=== PATIENT | female | born 1995 | race Caucasian/White ===

== ENCOUNTER 2018-11-05 13:25 | Inpatient (IN) | payer OTHER ==
[~2018-11-05] VITALS: Ht 162.6 cm; Wt 109.7 kg
[2018-11-05] MEDS ORDERED: ONDANSETRON 4 MG INJ IV STA (13:46)
[2018-11-05] MEDS ORDERED: METHYLERGONOVINE 0.2 MG INJ IM PRN ×2 (14:00→22:00)
[2018-11-05] MEDS ORDERED: OXYTOCIN 30 UNITS/LR 500 ML IV PRN ×2 (14:00→22:00)
[2018-11-05] MEDS ORDERED: METOCLOPRAMIDE 10 MG INJ IV ONE (14:00)
[2018-11-05] MEDS ORDERED: CEFAZOLIN 2 GM/50 ML (PMX) 50 ML IVPB SCH (14:00)
[2018-11-05] MEDS ORDERED: CARBOPROST 250 MCG INJ IM PRN ×2 (14:00→22:00)
[2018-11-05] MEDS ORDERED: MISOPROSTOL 200 MCG TAB PR PRN ×2 (14:00→22:00)
[2018-11-05 14:01] VITALS: Ht 162.6 cm; Wt 109.7 kg
[2018-11-05 14:03] VITALS: BP 127/73; PULSE 96
[2018-11-05] MEDS: LACTATED RINGER'S 1,000 ML IV SCH ×2 (14:45→14:46)
--- NOTE | 2018-11-05 15:01 | PREAC ---
Date/Time of Note Date/Time of Note DATE: 11/05/18 TIME: 15:00 Anesthesia Eval and Record Evaluation Time Pre-Procedure Interview DATE: 11/05/18 TIME: 15:00 Age 23 Sex female NPO: 8 hrs Preoperative diagnosis term labor, previous Csection Planned procedure repeat Csection Past Medical History Past Medical History: Includes GI: Obesity Surgery & Anesthesia Issues No known issue Meds Anticoagulation: No Beta Gopi within 24 hr: No Reason Beta Gopi not given: Pt. not on B-Gopi Current Medications Lactated Ringer's 1,000 ml @ 125 mls/hr Q8H IV Last administered on 11/05/18at 14:46; Admin Dose 125 MLS/HR; Start 11/05/18 at 13:46 Cefazolin Sodium/ Dextrose 50 ml @ 100 mls/hr ONCE IVPB ; Start 11/05/18 at 14:00 Oxytocin/Lactated Ringer's 500 ml @ 0 mls/hr ONCE PRN IV .VAGINAL BLEEDING; Start 11/05/18 at 14:00 Methylergonovine Maleate (Methergine) 0.2 mg ONCE PRN IM .VAGINAL BLEEDING; Start 11/05/18 at 14:00 Carboprost Tromethamine (Hemabate) 250 mcg ONCE PRN IM .VAGINAL BLEEDING; Start 11/05/18 at 14:00 Misoprostol (Cytotec) 1,000 mcg ONCE PRN TX .VAGINAL BLEEDING; Start 11/05/18 at 14:00 Meds reviewed: Yes Allergies Coded Allergies: No Known Allergies (Unverified Allergy, Unknown, 06/21/14) Allergies Reviewed: Yes Labs/Studies Labs Reviewed: Reviewed by anesthesiologist Result Diagram: 11/05/18 1355 Laboratory Tests 11/05/18 13:55 Blood Bank Test 11/05/18 13:55 Antibody Screen NEGATIVE Blood Type AB POSITIVE Rh Immune Globulin Candidate NO test: Positive Pre-procedure Exam Last vitals Vital Signs Date Temp Pulse Resp B/P (MAP) Pulse Ox O2 O2 Flow FiO2 Time Delivery Rate 11/05/18 99.3 96 127/73 Room Air 14:03 (91) Airway: Adequate mouth opening, Adequate thyromental dist Mallampati: Mallampati III Teeth: Normal Lung: Normal Heart: Normal ASA Physical Status ASA physical status: 2 Emergency: None Planned Anesthetic Neuraxial: Spinal Planned Pain Management Sub-arachniod narcotics, Parenteral pain med, Other neuraxial med Pre-operative Attestations Prior to commencing anesthesia and surgery, the patient was re-evaluated, there was verification of: *The patient's identity *The results of appropriate recent lab work and preoperative vital signs *The above evaluation not changing prior to induction *Anesthetic plan, risk benefits, alternative and complications discussed with p atient/family; questions answered; patient/family understands, accepts and wishes to proceed. RASHID OTERO MD November 05, 2018 15:01
[2018-11-05] MEDS ORDERED: morphine SULFATE/PF (10 MG/10 ML) INJ ONE (15:04)
[2018-11-05] MEDS ORDERED: OXYTOCIN 10 UNIT INJ ONE (15:05)
[2018-11-05] MEDS ORDERED: OXYTOCIN 30 UNITS/LR 500 ML IV ONE (15:05)
[2018-11-05] MEDS ORDERED: hydrALAzine 20 MG INJ IV PRN (15:30)
[2018-11-05] MEDS ORDERED: HYDROmorphONE 1 MG/5 ML IV SYRINGE IV PRN ×3 (15:30)
[2018-11-05] MEDS ORDERED: ONDANSETRON 4 MG INJ IV PRN ×2 (15:30)
[2018-11-05] MEDS ORDERED: MIDAZOLAM 1 MG/ML 2 ML INJ IV PRN (15:30)
[2018-11-05] MEDS ORDERED: LABETALOL HCL 20MG INJ IV PRN (15:30)
[2018-11-05] MEDS ORDERED: DIPHENHYDRAMINE 50 MG INJ IV PRN ×2 (15:30)
[2018-11-05] MEDS ORDERED: FENTAnyl 50 MCG/ML VIAL IV PRN ×2 (15:30)
[2018-11-05] MEDS ORDERED: ZOLPIDEM 5 MG TAB PO PRN (15:30)
[2018-11-05] MEDS ORDERED: NALOXONE (0.4 MG/ML) INJ IV PRN (15:30)
[2018-11-05] MEDS ORDERED: HYDROmorphONE 0.5 MG/0.5 ML SYG IV PRN ×2 (15:30)
[2018-11-05] MEDS ORDERED: KETOROLAC 30 MG INJ IV PRN (15:30)
[2018-11-05] MEDS ORDERED: FAMOTIDINE 20 MG INJ IV ONE (16:00)
--- NOTE | 2018-11-05 17:20 | HP ---
Date/Time of Note Date/Time of Note DATE: 11/05/18 TIME: 17:14 OB - History Hx of Present Free Text/Dictation 23 years old 2 para 1-0-0-1 with single intrauterine at 39 weeks and 1 day and previous delivery desires repeat delivery. She states good movement. She denies nausea, vomiting, shortness of breath, chest pain, headache, visual changes, vaginal bleeding or LOF. Risk factors: - Previous delivery x1 - Obesity - History of gestational hypertension in prior - Recurrent urinary tract infections: Currently is on prophylaxis with ceph alexin 500 mg daily Chief Complaint: Scheduled for repeat delivery Estimated Due Date: November 11, 2018 : 2 Para: 1 Spontaneous : 0 Therapeutic : 0 Care: Good Care Ultrasounds: Normal mid trimester US Obstetrical Complications: None Medical Complications: Other (Recurrent urinary tract infection) Past Family/Social History * Past Medical, Surgical, Family and Obstetric Histories reviewed from chart. Blood Type: AB+ Rubella: immune RPR/VDRL: Negative GBS Status: Negative HBsAG: Negative OB Admission Exam Vital Signs Vital Signs Vital Signs Date Temp Pulse Resp B/P (MAP) Pulse Ox O2 O2 Flow FiO2 Time Delivery Rate 11/05/18 99.3 96 127/73 Room Air 14:03 (91) Physical Exam HEENT: WNL Heart: Rhythm Normal Lungs: Clear Abdomen: WNL Extremities: Normal Reflexes: Normal Membranes: Intact Heart Rate: 140's Accelerations: Accelerations Present Decelerations: No Decelerations Varibility: Moderate Contractions on Admission: 6-10 Minutes Apart Intensity: Mild (Patient is comfortable with contractions) Last 72 hours Lab Results CBC & BMP 11/05/18 13:55 OB Assessment/Plan Other plan: 23 years old 2 para 1-0-0-1 with previous delivery, obesity at 39 weeks and 1 day desires repeat delivery -FHR: No sign of metabolic acidosis- Category I -Continuous EFM, toco -CBC, blood type and screen -Please see the orders -AB+/Rubella: Immune -GBS: Negative 2) history of recurrent UTI in current : She is currently on pr ophylaxis cephalexin 500 mg daily, will continue for 2 to 3 weeks after delivery The risk of delivery including but not limited to bleeding, infection, injury to other organs (bowel, bladder, ureter, vessels, nerves), injury to fetus, blood transfusion, blood transfusion related infection, risk of anesthesia, adhesion, needs for future , removal of uterus or any other indicated surgery, also increased risk of infection, deep vein thrombosis, pulmonary emboli due to BMI of 41.5 discussed with the patient and her family. She expressed understanding. All of her questions were answered. She signed the informed consent. PHYSICIAN'S VERIFICATION OF INFORMED CONSENT The patient was counseled regarding the procedure, its indications, risks, potential complications and alternatives and any questions were answered. Consent was obtained. PLANNED PROCEDURE/TREATMENT: delivery with possible using vacuum/forceps and any other indicated surgery PHYSICIAN'S VERIFICATION OF INFORMED CONSENT FOR BLOOD TRANSFUSION: There is a reasonable possibility that blood transfusion will be necessary as a result of the patient's procedure. I have discussed the following with the patient/patient's legal aircraft sales representative: An explanation of the benefits and risks of the transfusion of blood or blood products and the possible alternatives. All questions have been answered to the patient's satisfaction. INFORMED CONSENT:The patient has been informed of: The nature of the proposed care, treatment, services, medications, interventions or procedures. Potential benefits, risks or side effects, including potential problems related to recuperation. The likelihood of achieving care treatment and service goals. Reasonable alternatives to the proposed care, treatment and service. The relevant risks, benefits and side effects related to alternatives, including the possible results of not receiving care, treatment and services. When indicated, any limitations on the confidentiality of information learned from or about the patient. If appropriate, the risks, benefits and alternatives of the drugs to be used for sedation/analgesia including moderate sedation. If appropriate, patient has been provided information on the risks, benefits and alternatives to the transfusion of blood and/or blood products. If appropriate, patient has been provided information regarding the [place] Blood Act. ANNABEL CHAPARRO November 05, 2018 17:20
[2018-11-05] MEDS ORDERED: EPHEDrine 25 MG/5 ML SYG ONE (17:28)
[2018-11-05] MEDS ORDERED: LABETALOL HCL 20MG INJ ONE (18:32)
--- NOTE | 2018-11-05 19:20 | OPR ---
Operative Report Planned Procedure Procedure date November 05, 2018 Procedure(s) 1. Repeat low transverse delivery 2. Lysis of adhesion 3. Removal of two 1 x 1 and 1.5 x 1 cm left paratubal cyst Performed by see signature line Carton Repairer: NANCY DIAZ M.D. Anesthesiologist: RASHID OTERO MD Pre-procedure diagnosis 23 years old 2 para 1-0-0-1 with previous delivery and obesity (BMI: 41.5) at 39 weeks and 1 day desires repeat delivery. [id number] Anesthesia Type: [id number] spinal Post-Procedure Post-procedure diagnosis 23 years old 2 para 1-0-0-1 with previous delivery and obesity (BMI: 41.5) at 39 weeks and 1 day desires repeat delivery. Findings 1. Normal uterus, fallopian tubes and ovaries. There was thick omental adhesion to the peritoneum, also there was 2 paratubal cyst at the left 2. Viable male in cephalic presentation. 8 at one minute and 9 in 5 minutes. Weight: 3350 g - 7 pound 5 ounces. Time of delivery: 17:42 3. Placenta with three vessel cord 4. Amniotic fluid - Clear Estimated Blood Loss: 600 - 700 mls Specimen(s) none Grafts/Implant(s) none Complication(s) none Pt Condition post procedure: stable Disposition: PACU Procedure Description INDICATION AND HISTORY: A 23 years old 2 para 1-0-0-1 with previous delivery and obesity (BMI: 41.5) at 39 weeks and 1 day desires repeat delivery. The risk of delivery including but not limited to bleeding, infection, injury to other organs (bowel, bladder, ureter, vessels, nerves), injury to fetus, blood transfusion, blood transfusion related infection, risk of anes thesia, adhesion, needs for future , removal of uterus or any other indicated surgery, increased risk of infection due to obesity, deep vein thrombosis and pulmonary edema discussed with the patient and her family. She expressed understanding. All of her questions were answered. She signed the informed consent. DESCRIPTION OF OPERATION: The patient was taken to the operating room, where she was identified and the procedure was verified. The patient received two gram of Ancef 30 minutes prior to surgery. Spinal anesthesia was placed by anesthesiologist. The patient placed in the dorsal supine position with a left tilt. The heart rate was 34 bpm. The patient was then prepped and draped in the normal sterile fashion. A Pfannenstiel skin incision was made and carried down to the fascia with knife. The fascia was incised in the midline and the fascial incision was carried laterally with knife. The superior portion of the fascial incision was then grasped with Esha clamps and tented up and dissected off the underlying rectus muscle with sharp dissection. The lower portion of the fascial incision was then made in a similar fashion. The rectus muscle was and the peritoneum was entered. The peritoneal incision was then stretched and a bladder blade was inserted. Then, an incision was made in the lower uterine segment in a transverse fashion with a knife and extended bluntly. The was delivered atraumatically in cephalic presentation with the above findings. The umbilical cord was clamped and cut. The neonatology resuscitation team was present and the baby was handed to them. A cord blood sample was obtained for further evaluation. The placenta and membrane, which appeared normal were Removed. The uterus was exteriorized and cleared of all clot and debris. The uterus was then closed in a two layer fashion with 0-Monocryl. At the time of closure, hemostasis was noted. The gutters were irrigated. There was multiple omental adhesion on the peritoneum which clamped, cauterized, cut and suture- ligated with 0 Vicryl. There was two 1 x 1 and 1.5 x 1 cm left paratubal cyst which clamped, cauterized and cut.The peritoneum was reapproximated with 3-0 Vicryl. The muscle was reapproximated with 3-0 Vicryl. The fascia was ap proximated with 0-Vicryl in a running fashion. The subcutaneous tissue was reapproximated with 3-0 vicryl in 2 layer. The skin was closed with 4-0 Monocryl. All instruments, sponges and needle counts were correct x3. The patient tolerated the procedure well. She transferred to the recovery room in stable condition. ANNABEL CHAPARRO November 05, 2018 19:18
[2018-11-05 19:30] VITALS: BP 117/66; PULSE 83; RESP 19
[2018-11-05 21:15] VITALS: BP 122/67; PULSE 87; RESP 19
[2018-11-05] MEDS ORDERED: OXYTOCIN 30 UNITS/LR 500 ML IV SCH (22:00)
[2018-11-05] MEDS ORDERED: METHYLERGONOVINE 0.2 MG TAB PO PRN (22:00)
[2018-11-05] MEDS ORDERED: LANOLIN HPA 1 PKT TOP PRN (22:00)
[2018-11-06] VITALS: BP 111/62; PULSE 67; RESP 19
[2018-11-06 04:00] VITALS: BP 111/60; PULSE 83; RESP 19
[2018-11-06] MEDS: DEXTROSE 5%-LR 1,000 ML IV SCH ×3 (06:00→14:00)
[2018-11-06 08:00] VITALS: BP 102/54; PULSE 73; RESP 20
[2018-11-06] MEDS: SENNA/DOCUSATE NA (8.6MG/50MG) TAB PO SCH ×2 (08:13→20:57)
[2018-11-06] MEDS: KETOROLAC 30 MG INJ IV PRN ×2 (08:20→14:26)
[2018-11-06] MEDS: LACTATED RINGER'S 1,000 ML IV SCH (08:31)
[2018-11-06] MEDS ORDERED: DIPHTH/TET/ACEL PERTUSS (ADULT) 0.5 ML VIAL IM* ONE (11:00)
[2018-11-06 12:00] VITALS: BP 116/71; PULSE 85; RESP 19
[2018-11-06] MEDS ORDERED: HYDROCODONE/APAP (5/325) TAB PO PRN (15:30)
[2018-11-06 16:00] VITALS: BP 121/71; PULSE 95; RESP 20
[2018-11-06 19:30] VITALS: BP 117/66; PULSE 83; RESP 18
--- NOTE | 2018-11-06 21:32 | DELSUM ---
Delivery Summary A-C Datetime Report Generated by CPN: 11/06/2018 21:32 DELIVERY PERSONNEL Sequins Stringer: ILEANA, OCTAVIA MATERNAL INFORMATION Delivery Anesthesia: Spinal Medications in Delivery: SEE ANESTHESIA RECORD Delivery QBL (ml): 600 Placenta Cultured: No Maternal Complications: None LABOR SUMMARY EDC: 11/11/2018 00:00 No. Babies in Womb: 1 Attempted: No Labor Anesthesia: None LABOR INFORMATION Reason for Induction: Not Applicable Oxytocin: N/A Group B Beta Strep: Negative Antibiotics # of Doses: 1 Antibiotics Time of Last Dose: 11/05/2018 17:30 Steroids Given: None Reason Steroids Not Administered: Not Applicable MEMBRANES Membranes Rupture Method: Artificial Rupture of Membranes: 11/05/2018 17:41 Length of Rupture (hr): 0.02 Amniotic Fluid Color: Clear Amniotic Fluid Amount: Moderate Amniotic Fluid Odor: None STAGES OF LABOR Stage 3 hr: 0 Stage 3 min: 1 CSECTION DELIVERY Primary Indication: Repeat Elective Secondary Indication: Repeat Elective CSection Urgency: Elective CSection Incidence: Repeat Labor: No Labor Elective: Elective CSection Incision: Lower Uterine Transverse BABY A INFORMATION Infant Delivery Date/Time: 11/05/2018 17:42 Method of Delivery: Born in Route : No : N/A Forceps: N/A Vacuum Extraction: N/A Shoulder Dystocia : No SHOULDER DYSTOCIA BABY A Infant Delivery Date/Time: 11/05/2018 17:42 PRESENTATION/POSITION BABY A Presentation: Cephalic Cephalic Presentation: Vertex Breech Presentation: N/A PLACENTA INFORMATION BABY A Placenta Delivery Time : 11/05/2018 17:43 Placenta Method of Delivery: Manual Removal Placenta Status: Delivered SCORES BABY A Heart Rate 1 min: >100 bpm Resp Effort 1 min: Good Cry Reflex Irritability 1 min: Cough/Sneeze/Pulls Away Muscle Tone 1 min: Active Motion Color 1 min: Blue/Pale Resuscitation Effort 1 min: Tactile Stimulation SCORE 1 MIN: 8 Heart Rate 5 min: >100 bpm Resp Effort 5 min: Good Cry Reflex Irritability 5 min: Cough/Sneeze/Pulls Away Muscle Tone 5 min: Active Motion Color 5 min: Body S[place], Extremit Blue Resuscitation Effort 5 min: Tactile Stimulation SCORE 5 MIN: 9 INFORMATION BABY A Gestational Age at Delivery: 39.1 Gestational Status: Full Term- 39- 40.6 Weeks Outcome : Liveborn Infant Condition : Stable Sex: Male IDENTIFICATION/MEDS BABY A ID Band Number: [id number] ID Band Location: Right Leg; Left Arm Sensor Applied: Yes Sensor Number: [id number] Sensor Location : Cord Clamp Vitamin K Given : Not Given Erythromycin Given: Not Given WEIGHT/LENGTH BABY A Infant Birthweight (gm): 3315 Infant Weight (lb): 7 Weight (oz): 5 Infant Length (in): 20.00 Length (cm): 50.80 CORD INFORMATION BABY A No. Cord Vessels: 3 Nuchal Cord : N/A Cord Blood Taken: Yes Infant Suction: Mouth; Nose ASSESSMENT BABY A Complications: None Physical Findings at Delivery: Within Normal Limits Respirations: Appears Normal Clay Transporter/ALS Called : Yes Care By: RT/RN Transferred To: Remains with Mother
[2018-11-06] MEDS: IBUPROFEN 800 MG TAB GTB SCH (22:10)
[2018-11-06] MEDS: HYDROCODONE/APAP (5/325) TAB PO SCH (22:10)
--- NOTE | 2018-11-07 02:58 | PN ---
Date/Time of Note Date/Time of Note DATE: 11/07/18 TIME: 02:55 OB Subjective Subjective Subjective Late entry note. Patient seen on 11/06/2008 POD#1 Patient is doing well. She denies nausea, vomiting, shortness of breath, chest pain, headache. She has been ambulating without difficulty, tolerating regular diet. Pain is well controlled on current medications General: AAO X 3, comfortable, NAD, appropriate mood and affect. Heart: RRR +S1, +S2, no murmurs. Lungs: Clear to auscultation (B/L), no rales, rhonchi or wheezing. ABD: +BS. Soft, non-tender. Uterus 2 cm below umbilicus Incision: Clear, dry, intact. No erythema, drainage or induration. Flank: No CVA tenderness (B/L) LE: Mild edema. No clubbing, cyanosis, thigh or calf tenderness (B/L). Homans 'sign is negative 23 years old 2 para 2-0-0-2 s/p repeat delivery at 39 weeks and 1 day. POD#1 - AF, VSS - Baby is doing well, at bed side. She is bonding well - Contraception methods with R/B/A/FR discussed - Continue care - She received Tdap vaccine - Discharge home - Rx and instruction given - Follow up in one and 6 weeks OB Objective Objective Objective General: AAO X 3, comfortable, NAD, appropriate mood and affect. Heart: RRR +S1, +S2, no murmurs. Lungs: Clear to auscultation (B/L), no rales, rhonchi or wheezing. ABD: +BS. Soft, non-tender. Uterus 2 cm below umbilicus Incision: Clear, dry, intact. No erythema, drainage or induration. Flank: No CVA tenderness (B/L) LE: Mild edema. No clubbing, cyanosis, thigh or calf tenderness (B/L). Homans 'sign is negative OB Assessment/Plan Other plan: 23 years old 2 para 2-0-0-2 s/p repeat delivery at 39 weeks and 1 day. POD#1 - AF, VSS - Baby is doing well, at bed side. She is bonding well - Contraception methods with R/B/A/FR discussed - Continue care ANNABEL CHAPARRO November 07, 2018 02:58
[2018-11-07 04:00] VITALS: BP 115/63; PULSE 82; RESP 20
[2018-11-07] MEDS: IBUPROFEN 800 MG TAB GTB SCH ×3 (05:38→21:25)
[2018-11-07] MEDS: HYDROCODONE/APAP (5/325) TAB PO SCH ×3 (05:38→21:25)
[2018-11-07 08:00] VITALS: BP 107/59; PULSE 87; RESP 17
[2018-11-07] MEDS: SENNA/DOCUSATE NA (8.6MG/50MG) TAB PO SCH ×2 (09:47→20:39)
[2018-11-07 16:00] VITALS: BP 123/69; PULSE 83; RESP 18
--- NOTE | 2018-11-07 18:46 | PN ---
Date/Time of Note Date/Time of Note DATE: 11/07/18 TIME: 18:43 OB Subjective Subjective Subjective Ambulating. Urinated. Reports decreased vaginal bleeding. Breast-feeding. Pain well-controlled with p.o. pain medication. Denies any complaint. OB Objective Objective Objective GAL A&O, NAD Abdomen: Soft, fundus palpable at the level of umbilicus. Appropriate tenderness in the lower abdomen and around the incision noted. Incision: Clean dry intact with no evidence of infection, hematoma or drainage Lungs: Clear to auscultation bilaterally CV: RRR Extremities: No calf tenderness, no click no edema no cord palpable Laboratory Tests Test 11/06/18 04:44 11/06/18 07:11 White Blood Count 10.4 10^3/ul Red Blood Count 3.69 10^6/ul Hemoglobin 9.6 g/dl Hematocrit 29.5 % Mean Corpuscular Volume 79.9 fl Mean Corpuscular Hemoglobin 26.0 pg Mean Corpuscular Hemoglobin Concent 32.5 g/dl Red Cell Distribution Width 14.0 % Platelet Count 179 10^3/UL Mean Platelet Volume 9.9 fl Immature Granulocytes % 0.500 % Neutrophils % 67.3 % Lymphocytes % 24.0 % Monocytes % 7.5 % Eosinophils % 0.4 % Basophils % 0.3 % Nucleated Red Blood Cells % 0.0 /100WBC Immature Granulocytes # 0.050 10^3/ul Neutrophils # 7.0 10^3/ul Lymphocytes # 2.5 10^3/ul Monocytes # 0.8 10^3/ul Eosinophils # 0.0 10^3/ul Basophils # 0.0 10^3/ul Nucleated Red Blood Cells # 0.0 10^3/ul Lab Scanned Report [facility] [id number] OB Assessment/Plan Other Assessment: Postoperative day #2 Status post section Postop anemia, asymptomatic, Doing well Routine postop care Start iron with vitamin when tolerates p.o. SARAH Liu MD November 07, 2018 18:46
[2018-11-07 19:20] VITALS: BP 116/59; PULSE 81; RESP 20
[2018-11-08 04:00] VITALS: BP 121/62; PULSE 80; RESP 19
[2018-11-08] MEDS: IBUPROFEN 800 MG TAB GTB SCH ×2 (05:32→14:09)
[2018-11-08] MEDS: HYDROCODONE/APAP (5/325) TAB PO SCH ×2 (05:33→14:09)
[2018-11-08 08:30] VITALS: BP 116/55; PULSE 76; RESP 20
[2018-11-08] MEDS ORDERED: DIPHTH/TET/ACEL PERTUSS (ADULT) 0.5 ML VIAL IM* ONE (09:00)
[2018-11-08] MEDS ORDERED: MEASLES,MUMPS,RUBELLA VACCINE INJ SC* ONE (09:00)
[2018-11-08] MEDS: SENNA/DOCUSATE NA (8.6MG/50MG) TAB PO SCH (09:22)
--- NOTE | 2018-11-08 13:33 | PD.PPDC ---
SALES SYSTEMS ENGINEER Discharge Instruction Diagnosis [id number] Final Diagnosis: Papck5k s/p repeat c/s Condition [id number] Patient Condition: Rfpur9n Stable Diet [id number] Diet: Behqj6f Resume Regular Diet Activity/Restrictions [id number] Activity: Hewxd7e May Shower Spemv0Dg Restrictions: Qlqjl1m No Exercising No Lifting Minimize Walking Minimize Stair-climbing No Sexual Activity Nothing in the Vagina No [place] No Tampons, douche Wound/Drain Care Instructions [id number] Wound/Drain Care Instructions: Lrtqr7e Wash with soap and water Keep clean and dry Follow-up Follow-up with Physician: 2, Week/Weeks Return to clinic for [id number] PROOF INSPECTOR Instructions: Moraa1y Fever greater than 101 Chills Worsening abdominal pain Excessive Vaginal Bleeding More than 2 pads per hour Unable to tolerate diet Lovvp0Lc OB Instructions: Xefnp0r Breast Tenderness Depression Blurried Vision Headache [id number] Surgical Instructions: Rknio4g Incisional Drainage Incisional Redness MAMADOU MÁRQUEZ MD November 08, 2018 13:33
--- NOTE | 2018-11-08 13:36 | DS ---
Date/Time of Note Date/Time of Note DATE: 11/08/18 TIME: 13:35 Obstetrical Discharge Record Final Diagnosis Final Diagnosis: Term delivered Section Section: Repeat Complications Augmentation: No Induction: No Rupture of Membranes: No Condition on Discharge Physical Assessment Last Vitals: Vss afebrile Voiding: Yes Bowel Movement: Yes Breast: Soft, non-tender Fundus: Firm Abdomen and Incision: soft wound dry Calf Tenderness: No Patient Condition: Stable MAMADOU MÁRQUEZ MD November 08, 2018 13:36
[2018-11-09] MEDS ORDERED: DIPHTH/TET/ACEL PERTUSS (ADULT) 0.5 ML VIAL IM* ONE (10:00)
== END 2018-11-08 19:01 | disposition home or self-care (01) | DRG 785 ==
LOC: L-D 13:25 → MS1 21:30
PROVIDERS: ADMIT Obstetrics & Gynecology; ATTEND Obstetrics & Gynecology
PROC: 0UB60ZZ Excision of Left Fallopian Tube, Open Approach (ICD-10-PCS; 2018-11-05)
PROC: 0DNU0ZZ Release Omentum, Open Approach (ICD-10-PCS; 2018-11-05)
PROC: 10D00Z1 Extraction of Products of Conception, Low, Open Approach (ICD-10-PCS; principal; 2018-11-05 15:30)
DX: O99.214 Obesity complicating childbirth (principal); E66.9 Obesity, unspecified; O34.211 Maternal care for low transverse scar from previous cesarean delivery; O90.81 Anemia of the puerperium; D64.9 Anemia, unspecified; Z3A.39 39 weeks gestation of pregnancy; Z37.0 Single live birth; Z87.440 Personal history of urinary (tract) infections; Z79.2 Long term (current) use of antibiotics; Z23 Encounter for immunization
CPT/HCPCS: 85025; 85610; 85730; 86592; 86850; 86900; 86901; 87340; 90715; 99464; J0690; J1885; J2274; J2405; J2590; J2765; J7120; J7121

== ENCOUNTER 2018-11-10 00:24 | Emergency (ER) | payer SELFPAY ==
[~2018-11-10] VITALS: Ht 160 cm; Wt 105.6 kg
[2018-11-10 00:27] VITALS: BP 137/80; PULSE 84; RESP 20; Ht 160 cm; Wt 105.6 kg
== END 2018-11-10 01:19 | disposition left against medical advice (07) ==
LOC: FTE 00:24
DX: Z53.21 Procedure and treatment not carried out due to patient leaving prior to being seen by health care provider (principal)